=== PATIENT | female | born 1985 ===

== ENCOUNTER 2021-01-10 11:34 | Outpatient (REF) | payer BC, MEDICAID, SELFPAY ==
--- NOTE | 2021-01-10 10:30 | PAPFT_PTH ---
PATIENT: Erica Argueta LOC: [facility] U#:[id number] AGE/SX: 35/F ROOM: RE01/10/[address]: Nuria Vargas : 1985 BED: DIS: 01/10/2021 SPEC #: [id number] RECD: 01/10/21 18:13 STATUS: JUANA RENayeli #: [id number] RYAN: 01/10/21 10:[address]: Nuria aVrgas DEPT: [facility] Cytology RECD BY: Brenna Barron ENTERED: 01/10/21 18:14 SP TYPE: PAPFT OTHR DR: John Valadez Tissues: 1 - CX/ENDOCX FOR PAP SMEARS Procedures: PAP THIN PREP/[facility] Screening Comments: [id number]
[2021-01-10 15:09] LABS: ALT 20 U/L (14-59); AST 13 U/L (15-37); Albumin 4.2 g/dL (3.4-5.0); Alkaline Phosphatase 46 U/L (46-116); BUN 12 mg/dL (7-18); Bilirubin, Total 0.6 mg/dL (0.2-1.0); CREATININE 0.9 mg/dL (0.55-1.02); Calcium 9.1 mg/dL (8.5-10.1); Chloride 103 mmol/L (98-107); Glucose 85 mg/dL (74-106); Potassium 4.7 mmol/L (3.5-5.1); Sodium 140 mmol/L (136-145); TSH (W/Ref FT4) 0.64 uIU/mL (0.36-3.74); Total Protein 7.8 g/dL (6.4-8.2)
== END 2021-01-10 11:35 | disposition home or self-care (01) ==
LOC: NCHCN 11:34
PROVIDERS: PCP Internal Medicine; Visit Provider Nurse Practitioner Community Health
DX: R19.7 Diarrhea, unspecified (principal); R11.2 Nausea with vomiting, unspecified; Z12.4 Encounter for screening for malignant neoplasm of cervix; Z00.00 Encounter for general adult medical examination without abnormal findings
CPT/HCPCS: 80053; 88142; 84443

== ENCOUNTER 2024-05-19 21:41 | Outpatient (REF) | payer BC, MEDICAID, SELFPAY ==
--- NOTE | 2024-05-19 16:42 | PAPFT_PTH ---
PATIENT: Erica Argueta LOC: [facility] U#:[id number] AGE/SX: 38/F ROOM: RE05/19/[address]: Vida Zaragoza : 1985 BED: DIS: 05/19/2024 SPEC #: [id number] RECD: 05/20/24 13:18 STATUS: JUANA REQ #: [id number] RYAN: 05/19/24 16:[address]: Vida Zaragoza DEPT: [facility] Cytology RECD BY: Brenna Barron ENTERED: 05/20/24 13:18 SP TYPE: PAPFT OTHR DR: John Valadez Tissues: 1 - CX/ENDOCX FOR PAP SMEARS Procedures: PAP THIN PREP/[facility] Screening HPV DNA PROBE Comments: [id number] (HPV 16 & 18/45) (CHLAMYDIA/GC)
[2024-05-19 21:09] LABS: HGB 13.5 g/dL (11.2-15.7)
[2024-05-19 21:32] LABS: Calculated LDL 49 mg/dL (<100); Cholesterol 132 mg/dL (<200); Glucose 114 mg/dL (74-106); HDL Cholesterol 76 mg/dL (40-60); TSH (W/Ref FT4) 0.74 uIU/mL (0.36-3.74); Triglyceride 39 mg/dL (<150)
[2024-05-21 12:13] LABS: Chlamydia Result Negative (Negative); GC Result Negative (Negative)
== END 2024-05-19 21:42 | disposition home or self-care (01) ==
LOC: NCHCN 21:41
PROVIDERS: PCP Internal Medicine; Visit Provider Nurse Practitioner Family
DX: Z00.00 Encounter for general adult medical examination without abnormal findings (principal); N93.9 Abnormal uterine and vaginal bleeding, unspecified; E04.9 Nontoxic goiter, unspecified
CPT/HCPCS: 80061; 82947; 87491; 87591; 88142; 84443; 85018; 87624